=== PATIENT | male | born 1985 | race Caucasian/White ===

== ENCOUNTER 2020-09-16 17:34 | Emergency (ER) | payer SELFPAY ==
[2020-09-16] MEDS ORDERED: Sodium Chloride 0.9% 10 ML Syringe FLUSH PRN (17:43)
[2020-09-16] MEDS ORDERED: Sodium Chloride 0.9% 1,000 ML IV ONE (17:44)
[2020-09-16] MEDS ORDERED: HYDROmorphone 1 MG/ML Syringe IVPUSH ONE ×2 (17:44→18:08)
[2020-09-16] MEDS ORDERED: Ondansetron 4 MG/2 ML SDV IVPUSH ONE (17:44)
[2020-09-16] MEDS ORDERED: HYDROmorphone 1 MG/ML Syringe ONE (17:55)
[2020-09-16 18:21] LABS: CHLORIDE,CL 107 mmol/L (98-107); SODIUM,NA 142 mmol/L (136-145)
--- NOTE | 2020-09-16 18:21 | EDM.PDOC ---
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 He was standing on a ladder and the ladder slipped away. He was dangling from the edge of the roof and then fell directly to the ground about 6-8 feet. He reports landing onto his feet and then falling to the left side. He did not get up due to the pain, but was able to call 911. Enroute to the ER, EMS gave he 2 doses of Fentanyl 50mcg for left hip pain. He also is favoring his wrist and is in more pain with wrist movement. 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 ED EXAM, GENERAL - Physical Exam Exam: See Below General Appearance: Alert, WD/WN, No Apparent Distress, Other (Adult male. Obviously in pain with any movement.) Eye Exam: Bilateral Eye: PERRL Ears: Hearing Grossly Normal Nose: Normal Inspection, Normal Mucosa, No Blood Throat/Mouth: Normal Inspection, Normal Lips, Normal Voice Head: Atraumatic, Normocephalic Neck: Non-Tender, Other Respiratory/Chest: No Respiratory Distress, Lungs Clear, Normal Breath Sounds, Chest Non-Tender Cardiovascular: Normal Peripheral Pulses, Regular Rate, Rhythm GI/Abdominal: Normal Bowel Sounds, Soft, Non-Tender, No Organomegaly, No Mass, Pelvis Stable (Male) Exam: Deferred Rectal (Males) Exam: Deferred Back Exam: Normal Inspection Extremities: Other (Left wrist is swollen and slightly deformed, painful with ROM, CMS wnl, fingers also starting to swell. Left hip unremarkable appearance, but severe daniel with any attempt at ROM or movement.) Neurological: Alert, Oriented, CN II-XII Intact, Normal Cognition, No Motor/Sensory Deficits Psychiatric: Normal Affect, Normal Mood Skin Exam: Warm, Dry, Intact, Normal Color Course - Vital Signs Text/Narrative:: 175 Patient was seen on arrival by the PROJECT MANAGEMENT CONSULTANT. Xrays were immediately done. Labs ordered. He was given Dilaudid 1mg IVP and a bolus of NS was started. 1800 PROJECT MANAGEMENT CONSULTANT reviewed pelvis xray and noted left hip fracture. Remaining studies pending. Contacted [facility] regarding case. Dr Lee in the ER accepted the patient for trasnsport. 1819 He was given another dose of Dilaudid 1mg IVP and a Prefab Orthoglass type splint was applied to the left forearm and wrist region. Attempted to reduce the fracture, but repeat xray not obtained prior to departure. Labs that were completed were reviewed prior to departure. CBC stable. CMP-BUN 20 and mildly elevated otherwise negative. Patient to be transported by [facility] ALS crew. He remained stable until departure. - Orders/Labs/Meds Orders: Active Orders 24 hr Category Date Time Status Chest 1V Frontal [CR] Stat Exams 09/16/20 17:43 Ordered Pelvis 1V or 2V [CR] Stat Exams 09/16/20 17:43 Ordered Wrist 2V Lt [CR] Stat Exams 09/16/20 17:44 Ordered AMYLASE [CHEM] Stat Lab 09/16/20 17:50 Received CBC WITH AUTO DIFF [HEME] Stat Lab 09/16/20 17:50 Received COMPREHENSIVE METABOLIC PN,CMP [CHEM] Stat Lab 09/16/20 17:50 Received LIPASE [CHEM] Stat Lab 09/16/20 17:50 Received HYDROmorphone [Dilaudid] Med 09/16/20 18:08 Once 1 mg IVPUSH ONETIME ONE Sodium Chloride 0.9% [Normal Saline] 1,000 ml Med 09/16/20 17:44 Active IV ONETIME Sodium Chloride 0.9% [Saline Flush] Med 09/16/20 17:43 Active 10 ml FLUSH ASDIRECTED PRN Saline Lock Insert [OM.PC] Stat Oth 09/16/20 17:42 Ordered Medication Orders Sodium Chloride (Normal Saline) 1,000 mls @ 999 mls/hr IV ONETIME ONE Stop: 09/16/20 18:44 Sodium Chloride (Saline Flush) 10 ml FLUSH ASDIRECTED PRN PRN Reason: Keep Vein Open Meds: Medications Generic Name Dose Route Start Last Admin Trade Name Freq PRN Reason Stop Dose Admin Sodium Chloride 1,000 mls @ 999 mls/hr 09/16/20 17:44 Normal Saline IV 09/16/20 18:44 ONETIME ONE Sodium Chloride 10 ml 09/16/20 17:43 Saline Flush FLUSH ASDIRECTED PRN Keep Vein Open Discontinued Medications Generic Name Dose Route Start Last Admin Trade Name Ginger PRN Reason Stop Dose Admin Hydromorphone HCl 1 mg 09/16/20 17:44 Dilaudid IVPUSH 09/16/20 17:45 ONETIME ONE Hydromorphone HCl Confirm 09/16/20 17:55 Dilaudid Administered 09/16/20 17:56 Dose 1 mg .ROUTE .STK-MED ONE Ondansetron HCl 4 mg 09/16/20 17:44 Zofran IVPUSH 09/16/20 17:45 ONETIME ONE - Radiology Interpretation Free Text/Narrative:: XR Chest 1V=no acute findings (See final report) XR Pelvis=left femoral neck fracture (See final report) XR Left Wrist 1V-note comminuted distal radius fx, probable colles type (See final report) Departure - Departure Time of Disposition: 18:08 Disposition: DC/Tfer to Acute Hospital 02 Condition: Good Clinical Impression: Fracture of left hip Qualifiers: Encounter type: initial encounter Fracture type: closed Qualified Code(s): S72.002A - Fracture of unspecified part of neck of left femur, initial encounter for closed fracture Left wrist fracture Qualifiers: Encounter type: initial encounter Fracture type: closed Qualified Code(s): S62.102A - Fracture of unspecified carpal bone, left wrist, initial encounter for closed fracture Fall from ladder Qualifiers: Encounter type: initial encounter Qualified Code(s): W11.XXXA - Fall on and from ladder, initial encounter - Discharge Information Forms: Interfacility Transfer EMTALA, ED Department Discharge - My Orders Last 24 Hours: My Active Orders 09/16/20 17:42 Saline Lock Insert [OM.PC] Stat 09/16/20 17:43 Chest 1V Frontal [CR] Stat Pelvis 1V or 2V [CR] Stat Sodium Chloride 0.9% [Saline Flush] 10 ml FLUSH ASDIRECTED PRN 09/16/20 17:44 Wrist 2V Lt [CR] Stat Sodium Chloride 0.9% [Normal Saline] 1,000 ml IV ONETIME 09/16/20 17:50 AMYLASE [CHEM] Stat CBC WITH AUTO DIFF [HEME] Stat COMPREHENSIVE METABOLIC PN,CMP [CHEM] Stat LIPASE [CHEM] Stat 09/16/20 18:08 HYDROmorphone [Dilaudid] 1 mg IVPUSH ONETIME ONE - Assessment/Plan Last 24 Hours: My Active Orders 09/16/20 17:42 Saline Lock Insert [OM.PC] Stat 09/16/20 17:43 Chest 1V Frontal [CR] Stat Pelvis 1V or 2V [CR] Stat Sodium Chloride 0.9% [Saline Flush] 10 ml FLUSH ASDIRECTED PRN 09/16/20 17:44 Wrist 2V Lt [CR] Stat Sodium Chloride 0.9% [Normal Saline] 1,000 ml IV ONETIME 09/16/20 17:50 AMYLASE [CHEM] Stat CBC WITH AUTO DIFF [HEME] Stat COMPREHENSIVE METABOLIC PN,CMP [CHEM] Stat LIPASE [CHEM] Stat 09/16/20 18:08 HYDROmorphone [Dilaudid] 1 mg IVPUSH ONETIME ONE Assessment:: 1)Left Hip Fracture 2)Left Wrist Fracture 3)Fall from Ladder Plan: -Transfer to [facility] to Dr Lee via ground ambulance
[2020-09-16 18:22] LABS: ANION GAP 13.4 mmol/L (5-15)
--- NOTE | 2020-09-16 19:07 | CR ---
[id number] RAD/RAD Wrist Left 2V EXAM: RAD Wrist Left 2V CLINICAL DATA: TRAUMA COMPARISON: NO PREVIOUS SIMILAR EXAM IS AVAILABLE. FINDINGS: A comminuted distal left radial fracture is seen with articular involvement There is an associated ulnar styloid fracture The current exam is limited to a single projection IMPRESSION: FRACTURES OF DISTAL LEFT RADIUS AND ULNA Manuel Castellano MD 09/16/20 [id number] Thank you for allowing us to participate in the care of your patient.
--- NOTE | 2020-09-16 19:07 | CR ---
[id number] RAD/RAD Pelvis 1-2V Exam: RAD Pelvis 1-2V Clinical Data: TRAUMA COMPARISON: NO PREVIOUS SIMILAR EXAM IS AVAILABLE FINDINGS: A comminuted complex 4 part proximal left femoral diametaphyseal fracture is seen IMPRESSION: COMPLEX PROXIMAL LEFT FEMORAL FRACTURE Manuel Castellano MD 09/16/20 [id number] Thank you for allowing us to participate in the care of your patient.
--- NOTE | 2020-09-16 19:07 | CR ---
[id number] RAD/RAD Chest PA or AP 1V EXAM: SINGLE VIEW CHEST. INDICATION: TRAUMA COMPARISON: NO PREVIOUS SIMILAR EXAM IS AVAILABLE FINDINGS: The lungs are clear There is no pneumothorax The cardiomediastinal contour is within normal limits IMPRESSION: NEGATIVE EXAM Manuel Castellano MD 09/16/20 [id number] Thank you for allowing us to participate in the care of your patient.
== END 2020-09-16 19:00 | disposition short-term general hospital (02) ==
LOC: VM.ED 17:34
DX: S52.502A Unspecified fracture of the lower end of left radius, initial encounter for closed fracture (principal); S52.612A Displaced fracture of left ulna styloid process, initial encounter for closed fracture; S72.002A Fracture of unspecified part of neck of left femur, initial encounter for closed fracture; W11.XXXA Fall on and from ladder, initial encounter
CPT/HCPCS: 36415; 71045; 72170; 73100-LT; 80053; 82150; 83690; 85025; 96374; 96375; 99283; 99285-25